=== PATIENT | female | born 1985 | race Two or more races ===

== ENCOUNTER 2016-09-27 14:18 | Outpatient (CLI) | payer OTHER ==
[~2016-09-27] VITALS: Ht 152.4 cm; Wt 60.9 kg
[2016-09-27 14:35] VITALS: BP 117/76
[2016-09-27] MEDS ORDERED: PREN-3 PO (14:47)
[2016-09-27 15:30] LABS: AMNI OBC PASS; AMNISURE NEGATIVE (NEGATIVE)
== END 2016-09-27 15:39 | disposition home or self-care (01) ==
LOC: LDOP 14:18
PROVIDERS: ATTEND Obstetrics & Gynecology
DX: O42.92 Full-term premature rupture of membranes, unspecified as to length of time between rupture and onset of labor (principal); O62.9 Abnormality of forces of labor, unspecified; Z3A.39 39 weeks gestation of pregnancy
CPT/HCPCS: 59025; 84112; 99201; G0463

== ENCOUNTER 2016-09-30 06:13 | Inpatient (IN) | payer OTHER ==
[~2016-09-30] VITALS: Ht 152.4 cm; Wt 61.0 kg
[~2016-09-30 06:13] MED LIST: PREN-3 PO
[2016-09-30] MEDS ORDERED: OXYTOCIN 30U/ 0.9% NaCL 500ML 500 ML IV PRN (06:14)
[2016-09-30] MEDS ORDERED: OXYTOCIN 30U/ 0.9% NaCL 500ML 500 ML IV ONE (06:14)
[2016-09-30] MEDS ORDERED: TERBUTALINE 1 MG/ML, 1ML IVPush PRN (06:30)
[2016-09-30] MEDS ORDERED: FENTANYL PF 100 MCG/2ML IVPush PRN (06:30)
[2016-09-30] MEDS ORDERED: CALCIUM CARBONATE 500 MG TAB.CHEW PO PRN (06:30)
[2016-09-30] MEDS ORDERED: ONDANSETRON 2MG/ML, 2ML IVPush PRN (06:30)
[2016-09-30] MEDS ORDERED: FENTANYL PF 100 MCG/2ML IV PRN (06:30)
[2016-09-30 06:39] VITALS: BP 122/77
[2016-09-30] MEDS: LACTATED RINGERS 1,000 ML IV SCH ×5 (06:52→22:14)
[2016-09-30] MEDS ORDERED: OXYTOCIN 30U/ 0.9% NaCL 500ML 500 ML ONE ×2 (06:58→17:51)
[2016-09-30] MEDS ORDERED: FENTANYL/BUPIV./NS/PF 250 ML EPIDCONT ONE (10:06)
[2016-09-30] MEDS ORDERED: LIDOCAINE/PF 1.5%-EPI 1:200K, 30ML ONE (10:06)
[2016-09-30] MEDS: FENTANYL/BUPIV./NS/PF 250 ML EPIDCONT SCH (10:56)
[2016-09-30] MEDS ORDERED: LACTATED RINGERS 1,000 ML IVBOLUS PRN (11:00)
[2016-09-30] MEDS: D5%-LACTATED RINGERS 1,000 ML IV SCH ×3 (13:20→22:14)
[2016-09-30] MEDS ORDERED: ONDANSETRON 2MG/ML, 2ML ONE (13:54)
[2016-09-30] MEDS: OXYTOCIN 30U/ 0.9% NaCL 500ML 500 ML IV SCH (15:01)
[2016-09-30] MEDS ORDERED: ONDANSETRON 2MG/ML, 2ML IV PRN (15:30)
[2016-09-30] MEDS ORDERED: MISOPROSTOL 200 MCG TABLET PR PRN (15:30)
[2016-09-30] MEDS ORDERED: DOCUSATE 100 MG CAPSULE PO PRN (15:30)
[2016-09-30] MEDS ORDERED: IBUPROFEN 600 MG TABLET ONE (18:40)
[2016-09-30] MEDS: IBUPROFEN 600 MG TABLET PO PRN (18:42)
[2016-09-30 20:00] VITALS: BP 112/65
[2016-09-30 21:00] VITALS: BP 121/82
[2016-09-30] MEDS: OXYcodone/APAP 5/325MG TABLET PO PRN ×2 (21:58→22:01)
[2016-09-30] MEDS ORDERED: DIPHENHYDRAMINE 25 MG CAPSULE PO PRN (22:00)
[2016-10-01] VITALS: BP 105/75
[2016-10-01] MEDS: OXYTOCIN 30U/ 0.9% NaCL 500ML 500 ML IV SCH ×2 (01:01→11:01)
[2016-10-01] MEDS: OXYcodone/APAP 5/325MG TABLET PO PRN ×4 (01:12→15:22)
[2016-10-01] MEDS: LACTATED RINGERS 1,000 ML IV SCH ×4 (02:56→14:14)
[2016-10-01 04:30] VITALS: BP 112/70
[2016-10-01] MEDS: D5%-LACTATED RINGERS 1,000 ML IV SCH ×2 (06:14→14:14)
[2016-10-01] MEDS: IBUPROFEN 600 MG TABLET PO PRN ×2 (07:42→15:21)
[2016-10-01 07:44] VITALS: BP 105/67
[2016-10-01] MEDS: FENTANYL/BUPIV./NS/PF 250 ML EPIDCONT SCH (07:46)
[2016-10-01] MEDS ORDERED: PRENATAL VIT/IRON/FA 1 EACH TABLET PO SCH (09:00)
[2016-10-01] MEDS ORDERED: OXYC-302 PO (11:30)
[2016-10-01] MEDS ORDERED: IBUP-1222 PO (11:31)
== END 2016-10-01 18:15 | disposition home or self-care (01) | DRG 775 ==
LOC: LDIP 06:13 → 2NW 19:45
PROVIDERS: ADMIT Obstetrics & Gynecology; ATTEND Obstetrics & Gynecology
PROC: 10E0XZZ Delivery of Products of Conception, External Approach (ICD-10-PCS; principal; 2016-09-30)
PROC: 3E033VJ Introduction of Other Hormone into Peripheral Vein, Percutaneous Approach (ICD-10-PCS; 2016-09-30)
PROC: 0W8NXZZ Division of Female Perineum, External Approach (ICD-10-PCS; 2016-09-30)
PROC: 00HU33Z Insertion of Infusion Device into Spinal Canal, Percutaneous Approach (ICD-10-PCS; 2016-09-30)
PROC: 3E0R3CZ (ICD-10-PCS; 2016-09-30)
DX: O69.81X0 Labor and delivery complicated by cord around neck, without compression, not applicable or unspecified (principal); Z37.0 Single live birth; Z3A.39 39 weeks gestation of pregnancy
CPT/HCPCS: 36415; 85025; 86850; 86900; J2405; J2590; J3010; J7120; J7121; Q0163